=== PATIENT | male | born 1975 | race Caucasian/White ===

== ENCOUNTER 2022-05-02 08:59 | Emergency (ER) | payer MEDICAID, OTHER ==
[~2022-05-02] VITALS: Ht 182.9 cm; Wt 90.0 kg
[2022-05-02] MEDS ORDERED: ASPIRIN 81MG TABLET PO ONE (10:45)
[2022-05-02] MEDS ORDERED: NITROGLYCERIN 0.4MG TABLET SL SL PRN (10:45)
[2022-05-02 12:12] LABS: BASOPHILS % 0.7 % (0.0-2.0); EOSINOPHILS % 1.7 % (0.0-5.0); HEMATOCRIT. 51.1 % (42.0-52.0); HEMOGLOBIN. 17.5 g/dL (14.0-18.0); LYMPHOCYTES % 31.6 % (20.0-50.0); MEAN CORPUSCULAR HEMOGLOBIN 30.4 pg (28.0-32.0); MEAN CORPUSCULAR VOLUME 89.1 fL (80.0-94.0); MEAN PLATELET VOLUME 8.8 fl (7.4-10.4); MONOCYTES % 9.6 % (2.0-8.0); NEUTROPHILS % 56.4 % (40.0-76.0); PLATELET 148 x1000/uL (130-400); RED BLOOD CELL COUNT 5.74 mill/uL (4.7-6.1); RED CELL DISTRIBUTION WIDTH 13.5 % (11.6-14.6)
[2022-05-02 12:21] LABS: CHLORIDE 110 mEq/L (98-107)
[2022-05-02 12:30] LABS: ETHANOL BLOOD < 10 mg/dL
[2022-05-02 17:05] VITALS: BP 111/69
== END 2022-05-02 17:14 | disposition home or self-care (01) ==
LOC: ER 08:59
DX: R07.89 Other chest pain (principal)
CPT/HCPCS: 36415; 71045; 80053; 80320; 83690; 83880; 84484; 85025; 85379; 93005; 99285; Z7610; G0480

== ENCOUNTER 2023-01-20 15:33 | Emergency (ER) | payer MEDICAID, OTHER ==
[~2023-01-20] VITALS: Ht 182.9 cm; Wt 91.0 kg
[2023-01-20 15:42] VITALS: BP 146/102; PULSE 88; RESP 16; TEMP 98.6; O2SAT 100
[2023-01-20] MEDS ORDERED: INSU100I13 SQ (16:03)
[2023-01-20] MEDS ORDERED: INSU100I24 SQ (16:03)
== END 2023-01-20 17:08 | disposition home or self-care (01) ==
LOC: ER 15:33
DX: Z76.0 Encounter for issue of repeat prescription (principal); E11.9 Type 2 diabetes mellitus without complications
CPT/HCPCS: 82962; 99281; 99282

== ENCOUNTER 2023-03-19 11:38 | Emergency (ER) | payer OTHER ==
[~2023-03-19] VITALS: Ht 182.9 cm; Wt 86.0 kg
[~2023-03-19 11:38] MED LIST: INSU100I13 SQ; INSU100I24 SQ
[2023-03-19 12:10] LABS: BASOPHILS % 0.4 % (0.0-2.0); HEMATOCRIT. 53.4 % (42.0-52.0); HEMOGLOBIN. 18.2 g/dL (14.0-18.0); LYMPHOCYTES % 35.9 % (20.0-50.0); MEAN CORPUSCULAR HEMOGLOBIN 30.2 pg (28.0-32.0); MEAN CORPUSCULAR HGB CONC 34.1 g/dL (31.0-37.0); MEAN CORPUSCULAR VOLUME 88.6 fL (80.0-94.0); MEAN PLATELET VOLUME 7.9 fl (7.4-10.4); MONOCYTES % 6.2 % (2.0-8.0); NEUTROPHILS % 55.5 % (40.0-76.0); PLATELET 160 x1000/uL (130-400); RED BLOOD CELL COUNT 6.03 mill/uL (4.7-6.1); RED CELL DISTRIBUTION WIDTH 13.7 % (11.6-14.6); WHITE BLOOD COUNT 6.7 x1000/uL (4.5-11.0)
[2023-03-19 12:18] LABS: CHLORIDE 109 mEq/L (98-107); INDEX HEMOLYSI 1 (1-3); INDEX ICTERIC 1 (1-4); INDEX LIPEMIC 1 (1-3); POTASSIUM 3.8 mEq/L (3.5-5.1); SODIUM 141 mEq/L (136-145)
[2023-03-19 12:25] LABS: ALANINE AMINOTRANSFERASE 20 IU/L (13-61); ALBUMIN 4.1 g/dL (3.4-5.0); ASPARTATE AMINOTRANSFERASE 15 IU/L (15-37); BILIRUBIN TOTAL 1.1 mg/dL (0.1-1.0); CARBON DIOXIDE 25 mEq/L (21-32); GLUCOSE 92 mg/dL (70-105); PROTEIN TOTAL 7.6 g/dL (6.0-8.3); UREA NITROGEN BLOOD 13 mg/dL (7-21)
[2023-03-19 12:42] VITALS: TEMP 98.6; O2SAT 100
[2023-03-19] MEDS ORDERED: IBUP-2029 MT (15:56)
[2023-03-19 16:30] VITALS: BP 175/136; PULSE 110; RESP 16
[2023-03-19] MEDS ORDERED: IBUPROFEN 600MG TABLET PO NR (16:30)
== END 2023-03-19 18:46 | disposition home or self-care (01) ==
LOC: ER 11:38
DX: K80.20 Calculus of gallbladder without cholecystitis without obstruction (principal); E11.9 Type 2 diabetes mellitus without complications
CPT/HCPCS: 36415; 76705; 80053; 85025; 99284

== ENCOUNTER 2023-05-28 13:03 | Emergency (ER) | payer MEDICAID, OTHER ==
[~2023-05-28] VITALS: Ht 182.9 cm; Wt 90.0 kg
[~2023-05-28 13:03] MED LIST changes: +IBUP-2029 MT
[2023-05-28 13:07] VITALS: BP 131/93; PULSE 81; RESP 20; TEMP 97.3; O2SAT 98
[2023-05-28] MEDS ORDERED: GABA-532 MT (14:16)
== END 2023-05-28 14:51 | disposition home or self-care (01) ==
LOC: ER 14:29
DX: E11.40 Type 2 diabetes mellitus with diabetic neuropathy, unspecified (principal); Z87.19 Personal history of other diseases of the digestive system
CPT/HCPCS: 99281; 99283